=== PATIENT | female | born 1965 | race Hispanic/Latino ===

== ENCOUNTER 2020-02-02 14:35 | Outpatient (CLI) | payer OTHER ==
--- NOTE | 2020-02-02 15:37 | ULT ---
ULTRASOUND ABDOMEN COMPLETE: DATE: 02/02/2020 HISTORY: 54-year-old female with generalized abdominal pain FINDINGS: Gallbladder: Normal wall thickness. No gallstones or sludge identified. No pericholecystic fluid. Liver: Normal parenchymal echogenicity. Bilateral kidneys: No hydronephrosis. Pancreas: Nonspecific sonographic appearance. Common duct caliber: 3 mm. Abdominal aorta: No aneurysm Inferior vena cava: Unremarkable where visualized. Spleen: No splenomegaly. 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 IMPRESSION: Normal.
--- NOTE | 2020-02-02 16:21 | ULT ---
PELVIC ULTRASOUND: 02/02/20 COMPARISON: None. HISTORY: Pelvic pain. TECHNIQUE: Multiplanar santana scale and color Doppler images were obtained in a transabdominal and transvaginal pe lvic ultrasound. Spectral analysis of the Doppler waveforms of the ovaries were performed. FINDINGS: The uterus is normal in size and appearance without focal mass or abnormality. The endometrial stripe is normal measuring 4 mm. The left ovary could not be visualized. The right ovary is normal in size and appearance and demonstr ates normal internal flow. No free fluid is see in the pelvis. IMPRESSION: No significant pelvic abnormality. POS: EAA
== END 2020-02-02 14:36 | disposition home or self-care (01) ==
LOC: BICULT 14:35
PROVIDERS: ATTEND Family Medicine
DX: R10.2 Pelvic and perineal pain (principal)
CPT/HCPCS: 76856; 93975

== ENCOUNTER 2020-06-11 16:20 | Outpatient (CLI) | payer OTHER ==
--- NOTE | 2020-06-11 17:47 | RAD ---
RIGHT SHOULDER RADIOGRAPHS THREE VIEWS: Date: 06-11-2020 PROVIDED CLINICAL HISTORY: Pain without injury. FINDINGS: There is no evidence of fracture or other acute osseous abnormality. The glenohumeral relationship ap pears normal. The subacromial space appears preserved. The visualized right lung field appears clear. 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 IMPRESSION: Mild acromioclavicular joint osteoarthrosis. POS: [facility]
== END 2020-06-11 16:21 | disposition home or self-care (01) ==
LOC: BICRAD 16:20
PROVIDERS: ATTEND Family Medicine
DX: M25.511 Pain in right shoulder (principal); M19.011 Primary osteoarthritis, right shoulder

== ENCOUNTER 2021-02-20 10:15 | Outpatient (CLI) | payer OTHER, SELFPAY | END 2021-02-20 10:16 | disposition home or self-care (01) | LOC: BICRAD 10:15 | PROVIDERS: ATTEND Family Medicine | DX: M79.673 Pain in unspecified foot (principal); M25.579 Pain in unspecified ankle and joints of unspecified foot; M79.606 Pain in leg, unspecified; S82.62XA Displaced fracture of lateral malleolus of left fibula, initial encounter for closed fracture; S92.352A Displaced fracture of fifth metatarsal bone, left foot, initial encounter for closed fracture ==

== ENCOUNTER 2021-11-11 09:18 | Outpatient (CLI) | payer OTHER | END 2021-11-11 09:19 | disposition home or self-care (01) | LOC: BICRAD 09:18 | PROVIDERS: ATTEND Family Medicine | DX: M25.542 Pain in joints of left hand (principal); M25.541 Pain in joints of right hand ==

== ENCOUNTER 2022-10-19 08:51 | Inpatient (IN) | payer MEDICAID, SELFPAY ==
[2022-10-19 09:36] LABS: #Lymphocytes 1.4 thou/uL (1.20-3.40); #Monocytes 0.7 thou/uL (0.11-0.59); #Neutrophils 16.8 thou/uL (1.40-6.50); %Basophils 0.1 % (0.0-1.0); %Eosinophils 0.2 % (0.0-10.0); %Lymphocytes 7.5 % (21.0-51.0); %Monocytes 3.7 % (0.0-10.0); %Neutrophils 88.6 % (42.0-75.0); Hemoglobin 14.6 g/dL (12.0-16.0); Mean Corpuscular HGB CONC 33.8 g/dL (32.0-36.0); Mean Corpuscular Hemoglobin 31.5 pg (27.0-31.0); Mean Corpuscular Volume 93.2 fl (78.0-98.0); Mean Platelet Volume 6.2 fL (7.4-10.4); Platelet Count 364 10x3/uL (130-400); RBC Distribution Width 11.6 % (11.5-14.5); Red Blood Cell (RBC) Count 4.61 mill/uL (4.20-5.40)
[2022-10-19 09:59] LABS: Bilirubin Negative (Negative); Blood, Urine Negative (Negative); Clarity Clear (Clear); Glucose, Urine (Dipstick) Greater than 1000 mg/dL (Negative); Ketone, Urine 40 mg/dL (Negative); Leukocyte Negative Leu/uL (Negative); Nitrite Negative (Negative); Protein, Urine (Dipstick) 20 mg/dL (Neg-Trace); Urobilinogen Normal mg/dL (Less than 2)
[2022-10-19 10:02] LABS: ALT (SGPT) 21 U/L (8-55); AST (SGOT) 17 U/L (5-34); Albumin 4.3 g/dL (3.5-5.0); Alkaline Phosphatase 78 U/L (40-110); Anion Gap 15 mmol/L (10-20); BUN (Urea Nitrogen) 11 mg/dL (9.8-20.1); Bilirubin, Total 0.7 mg/dL (0.2-1.2); Calc. Creatinine Clearance 0 mL/min (70-130); Calcium 9.5 mg/dL (7.8-10.44); Carbon Dioxide 28 mmol/L (22-29); Chloride 96 mmol/L (98-107); Estimated GFR 93; Globulin 3.6 g/dL (2.4-3.5); Glucose 225 mg/dL (70-105); Lipase 69 U/L (8-78); Potassium 4.6 mmol/L (3.5-5.1); Protein, Total 7.9 g/dL (6.0-8.3); Sodium 134 mmol/L (136-145)
[2022-10-19] MEDS ORDERED: Morphine 4 MG/ML VIAL ONE (10:58)
[2022-10-19] MEDS ORDERED: Ondansetron PF 4 MG/2 ML Vial ONE (10:58)
[2022-10-19] MEDS ORDERED: Sodium Chloride 0.9% 100 ML ONE (11:21)
[2022-10-19] MEDS ORDERED: Piperacillin/Tazobactam 4.5 GM VIAL ONE (11:22)
[2022-10-19] MEDS ORDERED: Iopamidol-370 76% 500 ML 1 ML ONE (12:30)
[2022-10-19 13:22] VITALS: BMI 32.2
[2022-10-19] MEDS ORDERED: Ondansetron ODT 4 MG TAB SL PRN (17:30)
[2022-10-19] MEDS ORDERED: Ondansetron PF 4 MG/2 ML Vial IVP PRN (17:30)
[2022-10-19] MEDS ORDERED: Ketorolac Tromethamine 30 MG/ML VIAL IVP SCH (17:30)
[2022-10-19] MEDS ORDERED: Dextrose 50% Abboject 50 ML SYRINGE SLOW IVP PRN (18:04)
[2022-10-19] MEDS ORDERED: TETANUS, DIPHTHERIA TOX,ADULT (TDVAX) 0.5 ML VIAL IM ONE (18:04)
[2022-10-19] MEDS ORDERED: Acetaminophen 325 MG TAB PO PRN (18:04)
[2022-10-19] MEDS ORDERED: traMADol HCl 50 MG TAB PO PRN (18:04)
[2022-10-19] MEDS ORDERED: HumaLOG 300 UNITS/3 ML VIAL SC PRN (18:04)
[2022-10-19] MEDS ORDERED: Dextrose 5% in Water 1,000 ML IV PRN (18:04)
[2022-10-19] MEDS ORDERED: Morphine 4 MG/ML VIAL SLOW IVP PRN (18:04)
[2022-10-19] MEDS: Piperacillin/Tazobactam 3.375 GM in Sodium Chloride 0.9% 100 ML IVPB SCH (18:22)
[2022-10-19] MEDS: Lactated Ringer's 1,000 ML IV SCH (18:22)
[2022-10-19] MEDS: Famotidine/PF 20 mg/2ml Vial SLOW IVP SCH (21:05)
[2022-10-20] MEDS: Piperacillin/Tazobactam 3.375 GM in Sodium Chloride 0.9% 100 ML IVPB SCH ×3 (01:15→17:19)
[2022-10-20] MEDS: Lactated Ringer's 1,000 ML IV SCH ×3 (02:40→17:19)
[2022-10-20 05:52] LABS: #Basophils 0.1 thou/uL (0.0-0.2); #Eosinphils 0.2 thou/uL (0.0-0.7); #Lymphocytes 2.4 thou/uL (1.20-3.40); #Monocytes 0.8 thou/uL (0.11-0.59); #Neutrophils 6.7 thou/uL (1.40-6.50); %Basophils 0.5 % (0.0-1.0); %Eosinophils 1.6 % (0.0-10.0); %Lymphocytes 24.1 % (21.0-51.0); %Monocytes 7.8 % (0.0-10.0); %Neutrophils 66.1 % (42.0-75.0); Hemoglobin 12.4 g/dL (12.0-16.0); Mean Corpuscular HGB CONC 34.6 g/dL (32.0-36.0); Mean Corpuscular Hemoglobin 32.3 pg (27.0-31.0); Mean Corpuscular Volume 93.2 fl (78.0-98.0); Mean Platelet Volume 6.4 fL (7.4-10.4); Platelet Count 303 10x3/uL (130-400); RBC Distribution Width 11.5 % (11.5-14.5); Red Blood Cell (RBC) Count 3.84 mill/uL (4.20-5.40); White Blood Cell (WBC) Count 10.1 10x3/uL (4.8-10.8)
[2022-10-20 06:02] LABS: Hemoglobin A1c 6.8 % (4.0-6.0)
[2022-10-20 06:25] LABS: ALT (SGPT) 15 U/L (8-55); AST (SGOT) 12 U/L (5-34); Albumin 3.7 g/dL (3.5-5.0); Alkaline Phosphatase 65 U/L (40-110); Anion Gap 12 mmol/L (10-20); BUN (Urea Nitrogen) 8 mg/dL (9.8-20.1); Bilirubin, Total 0.6 mg/dL (0.2-1.2); Calc. Creatinine Clearance 99 mL/min (70-130); Calcium 8.9 mg/dL (7.8-10.44); Carbon Dioxide 27 mmol/L (22-29); Chloride 104 mmol/L (98-107); Estimated GFR 93; Globulin 3.2 g/dL (2.4-3.5); Glucose 160 mg/dL (70-105); Potassium 4.3 mmol/L (3.5-5.1); Protein, Total 6.9 g/dL (6.0-8.3); Sodium 139 mmol/L (136-145)
[2022-10-20] MEDS: Verapamil 120 MG TAB PO SCH (09:02)
[2022-10-20] MEDS: FLUoxetine HCl 20 MG CAP PO SCH (09:03)
[2022-10-20] MEDS: Lisinopril 20 MG TAB PO SCH (09:03)
[2022-10-20] MEDS: Famotidine/PF 20 mg/2ml Vial SLOW IVP SCH ×2 (09:03→20:10)
[2022-10-21] MEDS: Lactated Ringer's 1,000 ML IV SCH ×2 (02:02→08:45)
[2022-10-21] MEDS: Piperacillin/Tazobactam 3.375 GM in Sodium Chloride 0.9% 100 ML IVPB SCH ×2 (02:02→08:52)
[2022-10-21 08:07] VITALS: BP 163/76; TEMP 98.4
[2022-10-21] MEDS: Lisinopril 20 MG TAB PO SCH (08:44)
[2022-10-21] MEDS: Famotidine/PF 20 mg/2ml Vial SLOW IVP SCH (08:44)
[2022-10-21] MEDS: FLUoxetine HCl 20 MG CAP PO SCH (08:44)
[2022-10-21] MEDS: Verapamil 120 MG TAB PO SCH (08:44)
[2022-10-22] MEDS ORDERED: Polyethylene Glycol 3350 17 GM Packet PO SCH (09:00)
== END 2022-10-21 10:34 | disposition home or self-care (01) | DRG 392 ==
LOC: ERS 08:51 → SURG B 13:17 → OBSVTOIN 10-20 15:51
PROVIDERS: ADMIT Specialist; ATTEND Specialist
DX: K59.00 Constipation, unspecified (principal); K52.9 Noninfective gastroenteritis and colitis, unspecified; E11.9 Type 2 diabetes mellitus without complications; I10 Essential (primary) hypertension; Z98.51 Tubal ligation status; Z79.899 Other long term (current) drug therapy; Z79.84 Long term (current) use of oral hypoglycemic drugs; Z79.4 Long term (current) use of insulin
CPT/HCPCS: 36415; 36416; 74177; 76705; 78227; 80053; 81003; 83036; 83605; 83690; 84484; 85025; 87040; 93005; 96361; 96365; 96366; 96372; 96375; 96376; A9537; G0378; J1650; J1885; J2270; J2405; J2543; J3490; J7120; Q9967; S0028

== ENCOUNTER 2023-10-23 14:09 | Outpatient (CLI) | payer OTHER | END 2023-10-23 14:10 | disposition home or self-care (01) | LOC: BICRAD 14:09 | PROVIDERS: ATTEND Internal Medicine | DX: R05.9 Cough, unspecified (principal) | CPT/HCPCS: 71046 ==